=== PATIENT | female | born 1940 | race Caucasian/White ===

== ENCOUNTER → 2018-07-24 | Outpatient (CLI) | payer MEDICARE ==
--- NOTE | 2018-07-24 10:00 | RAD ---
Ultrasound-guided left thyroid biopsy, 07/24/2018: HISTORY: Suspicious thyroid nodule Previous studies demonstrated a multinodular thyroid gland with a cold appearing nodule in the left upper pole. Under local anesthesia, aseptic conditions and sonographic guidance a 25-gauge needle was passed into this left thyroid nodule via an anterolateral approach. 4 separate aspirates were obtained from the nodule in this manner. The materials were sent to pathology for evaluation with the pathology report pending. Hemostasis was then obtained. The patient tolerated the procedure well and left the department in good condition. Electronically signed by: Dean Pearl MD (07/24/2018 9:56 AM) [facility]
--- NOTE | 2018-07-26 15:07 | PATHOLOGY ---
Note [facility] Accession Number: [id number] TESTS RESULT FLAG UNITS REF RANGE LAB Clinician Provided Cytology Information No. of containers..01 Other (Miscellaneous) Source: LEFT THYROID DIAGNOSIS: LEFT THYROID INADEQUATE, INSUFFICIENT CELLS FOR STUDY. [place] CATEGORY I. UNSATISFACTORY. BLOODY SMEARS WITH ONLY FEW CLUSTERS OF FOLLICULAR CELLS THIS INTERPRETATION INCLUDES EVALUATION OF A CELL BLOCK. Signed out by: Servando Gonzalez MD, Pathologist NPI- [id number] Performed by: Raheem Maciel, Tree Deadener ([facility]) Gross description: 30 ML, RED, CLEAR /LCS FLAG LEGEND: L-Low Normal,H-High Normal,LL-Alert Low,HH-Alert High <-Panic Low,>-Panic High,A-Abnormal,AA-Critical Abnormal Performed at: [address] [id number] Kali Nassar MD, [address] [facility] [address] [place] [address] Servando Gonzalez MD, Specimen Comment: A courtesy copy of this report has been sent to Specimen Comment: [phone]. Specimen Comment: Report sent to Specimen Comment: A duplicate report has been generated due to demographic updates. Performed at: [address] [place] [address], [place] [id number] MD Kali Nassar MD Phone: [phone]
== END | disposition home or self-care (01) ==
LOC: US 08:36
PROVIDERS: ATTEND Surgery
DX: E04.2 Nontoxic multinodular goiter (principal); I11.9 Hypertensive heart disease without heart failure; Z79.82 Long term (current) use of aspirin; Z88.8 Allergy status to other drugs, medicaments and biological substances; Z90.49 Acquired absence of other specified parts of digestive tract; Z98.890 Other specified postprocedural states; Z85.828 Personal history of other malignant neoplasm of skin; Z98.51 Tubal ligation status
CPT/HCPCS: 10005; 60300; 76942; 88173; 88305